=== PATIENT | male | born 1950 | race Caucasian/White ===

== ENCOUNTER → 2017-07-26 | Outpatient (CLI) | payer OTHER ==
--- NOTE | 2017-07-26 12:25 | P.CNPUL ---
History of Present Illness Consult date: 07/26/17 Reason for consult: obstructive sleep apnea History of present illness: A 67-year-old male patient who was asked to come and see me back at the sleep Center regarding his obstructive sleep apnea. This patient was diagnosed having obstructive sleep apnea more than 20 years ago and his been utilizing CPAP therapy at a pressure of 16 cm of water. His last CPAP machine was given to him approximately 3 years ago and is using nasal pillows. He is coming in to the sleep center upon the request of his neurologist to make sure his treatment is still successful. The patient tells her today that he is been utilizing his CPAP machine overnight without any interruption. He does not snore while on the CPAP machine. No witnessed apneas while on treatment. He goes to bed at around 8 PM and he wakes up to 20 a.m. in the morning. He has to wake up early to go to work. He lives in [place] and he works in [employer]. He got of 45 minutes [place] [address] back and forth and he does not fall asleep while driving. He does not take any naps during the day. He wakes up refreshed in the morning. He has no restlessness in lower extremities. No nightmares. No sleepwalking. No sleep talking. No palpitations. No heartburn. No claustrophobia. His weight has been also stable. As such his treatment has been essentially successful. He under the care of neurology regarding chronic restless mass and essential tremors. Review of Systems A full review of system was done and the positive findings are almost above in history of present illness. He has some mild chronic depression. He has not been involved in motor vehicle accident because of feeling drowsy or sleepy. Does not fall asleep while driving. No chest pain. No nocturnal heartburn. No body aches or pains. No back pain. No other complaints otherwise. Past Medical History Additional Past Medical History / Comment(s): Obstructive sleep apnea, morbid obesity, essential tremors, diabetes mellitus, hyperlipidemia Additional Past Surgical History / Comment(s): Right hand surgery, otherwise the surgical history is negative Smoking Status: Former smoker Past Alcohol Use History: None Reported Past Drug Use History: None Reported - Past Family History Father Family Medical History: Sleep Apnea/CPAP/BIPAP Medications and Allergies Home Medications and Allergies Comment(s): Etodolac 400 mg twice a day as needed, metformin 500 mg once a day, bupropion XL 300 mg by mouth daily, Lipitor 40 mg by mouth daily, lisinopril 10 mg by mouth daily, Sinemet 25/100 on tablets 3 times a day, lorazepam 0.5 mg twice a day Physical Exam Vitals: BP is 129/85, pulse is 73, respirations 14, temperature 97.2, saturation 97% on room air, exercise is 22-1/2 inches, weight is 354 pounds, height is 69 inches, BMI is 52.2, [place] score is 5. Morbidly obese, calm and comfortable likely distress.Head exam was generally normal. There was no scleral icterus or corneal arcus. Mucous membranes were moist. Neck is short and supple and there is significant crowding of the posterior oropharynx and the patient has a Mallampati class IV. No goiter. No neck masses. No adenopathy.Cardiac exam revealed the PMI to be normally situated and sized. The rhythm was regular and no extrasystoles were noted during several minutes of auscultation. The first and second heart sounds were normal and physiologic splitting of the second heart sound was noted. There were no murmurs, rubs, clicks, or gallops.Lungs were clear to auscultation and percussion, and with normal diaphragmatic excursion. No wheezes or rales were noted. Abdominal exam revealed normal bowel sounds. The abdomen was soft, non- tender, and without masses, organomegaly, or appreciable enlargement of the abdominal aorta. Patient is obese and organs cannot be accurately palpated.Examination of the extremities revealed easily palpable radial, femoral and pedal pulses. There was no cyanosis, clubbing or edema. Assessment and Plan Plan: Assessment 1 obstructive sleep apnea diagnosed and treated for the past 20 years and the patient is currently receiving successful CPAP therapy at a pressure of 16 cm of water. His treatment is successful and the patient denies having any snoring , apneas or any major hypersomnia and sleepiness during the day. 2 obesity, BMI 52.2 3 essential tremors 4 diabetes 5 hyperlipidemia Plan There is no need in repeating staging studies at this point. The patient has been successfully treated. Anterior same pressure setting and a CPAP machine. He is using nasal pillows which he wants to keep. Recommend losing weight. His treatment is successful. He follows a very good sleep hygiene measure. He' ll see her back in a years time, earlier if needed. As mentioned, there is no need to repeating his sleep studies at this point. I requested the patient bring in his CPAP machine during his upcoming visit to check on his compliance data.
== END ==
LOC: SLEEP 11:06
PROVIDERS: ATTEND Internal Medicine Critical Care Medicine
DX: G47.33 Obstructive sleep apnea (adult) (pediatric) (principal); E66.9 Obesity, unspecified; R25.1 Tremor, unspecified; E11.9 Type 2 diabetes mellitus without complications; E78.5 Hyperlipidemia, unspecified; F17.200 Nicotine dependence, unspecified, uncomplicated; Z79.899 Other long term (current) drug therapy
CPT/HCPCS: 99211

== ENCOUNTER → 2019-04-03 | Outpatient (CLI) | payer OTHER ==
--- NOTE | 2019-04-03 16:17 | CT ---
EXAMINATION TYPE: CT sinus wo con DATE OF EXAM: 04/03/2019 COMPARISON: None HISTORY: 69-year-old male with chronic sinusitis. CT DLP: 600 mGycm Automated exposure control for dose reduction was used. TECHNIQUE: Noncontrast axial views of the paranasal sinuses were obtained. Coronal reconstructions pe rformed. FINDINGS: PARANASAL SINUSES: Mild mucosal thickening within the bilateral maxillary sinuses with small polyps or mucous retention cysts along the floors of the maxillary sinuses measuring up to 1 cm. Mild/moderate mucosal thickening within the ethmoid air cells. Sphenoid and frontal sinuses are well pneumatized. frontal, ethmoid, maxillary and sphenoid sinuses are clear and well pneumatized. There is no mucosal thickening or air-fluid level. Reactive vahid- osteogenesis is not seen. There is no destruction of the osseous delgadillo of the paranasal sinuses. THE NASAL CAVITY: The osteomeatal complexes are patent. There is minimal undulation of the nasal septum. The imaged brain shows moderate generalized atrophy. Orbits and globes appear intact. Mastoid air cells and middle ear cavities are well pneumatized. Reformatted images confirm above findings. IMPRESSION: Mild to moderate chronic maxillary and ethmoid sinus disease. There are small polyps or mucosal reten tion cyst measuring up to 1 cm along the floors of the maxillary sinuses.
== END | disposition home or self-care (01) ==
LOC: RADCTMAIN 15:51
PROVIDERS: ATTEND Otolaryngology
DX: J32.8 Other chronic sinusitis (principal)
CPT/HCPCS: 70486

== ENCOUNTER → 2019-04-25 | Outpatient (CLI) | payer OTHER | END | disposition home or self-care (01) | LOC: LABWHC1 13:05 | PROVIDERS: ATTEND Otolaryngology | DX: R53.83 Other fatigue (principal) | CPT/HCPCS: 36415; 82306; 82330 ==

== ENCOUNTER → 2019-12-19 | Outpatient (CLI) | payer OTHER | END | disposition home or self-care (01) | LOC: RADMRIMAIN 16:57 | PROVIDERS: ATTEND Otolaryngology | DX: Z53.9 Procedure and treatment not carried out, unspecified reason (principal) ==

== ENCOUNTER 2020-06-16 18:10 | Emergency (ER) | payer OTHER ==
[2020-06-16] MEDS ORDERED: ORPHENADRINE 30 MG/ML 2 ML VIAL IVP STA (18:28)
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
[2020-06-16] MEDS ORDERED: ONDANSETRON 4 MG/2 ML VIAL IVP STA (19:12)
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
[2020-06-16] MEDS ORDERED: KETOROLAC 30 MG/ML 1 ML VIAL IVP STA (19:24)
[2020-06-16 19:25] VITALS: BP 174/99; PULSE 82; RESP 20; TEMP 97.8
[2020-06-16] MEDS ORDERED: CYCLOBENZAPRINE 10MG STARTER 3 TAB BTL PO STA (19:31)
[2020-06-16] MEDS ORDERED: ACET/COD 300 MG/30 MG STARTER PACK 6 TAB BTL PO STA (19:31)
== END 2020-06-16 20:20 | disposition home or self-care (01) ==
LOC: EC 18:10
DX: S16.1XXA Strain of muscle, fascia and tendon at neck level, initial encounter (principal); E11.9 Type 2 diabetes mellitus without complications; E78.5 Hyperlipidemia, unspecified; I10 Essential (primary) hypertension; E66.01 Morbid (severe) obesity due to excess calories; Z68.43 Body mass index [BMI] 50.0-59.9, adult; V59.49XA Driver of pick-up truck or van injured in collision with other motor vehicles in traffic accident, initial encounter; Y92.481 Parking lot as the place of occurrence of the external cause
CPT/HCPCS: 72125; 70450; 99285; 96374; 96375 ×2; J2360; J2405; J1885

== ENCOUNTER → 2022-06-01 | Outpatient (CLI) | payer MEDICARE ==
--- NOTE | 2022-06-01 16:45 | P.SLEEP ---
History of Present Illness H&P Date: 06/01/22 This is a 72-year-old male patient who is coming in for routine check regarding his obstructive sleep apnea. His last evaluation with me was in 2017. At that time, the patient was using a ResMed S9 CPAP machine which was adjusted at a pressure of 16 cm of water. I did a compliance to check on him at that time and the patient was being successfully treated. He was using the same machine over the years and recently his machine has been active and up and malfunctioning. For that reason, the patient decided to come back for reevaluation. The patient is known to have obstructive sleep apnea. He is morbidly obese. He is known to have diabetes mellitus, and hyperlipidemia. No history of any cardiovascular diseases. He is morbidly obese. O2 sats, over the years, the patient has gained significant amount of weight. Back in 2017, used to weigh around 354 pounds and currently his weight is up to 382. He snores off the treatment. He becomes quite symptomatic while off the treatment. Once on the treatment, he is well treated and the patient's [place] score is as low as 3. No angina. No palpitations. He is going to bed at around 11 PM and waking up 9:00 in the morning. He is averaging at least 8 hours of sleep. No snoring while on the CPAP unit. He wakes up at least 3-4 times the middle of the night to urinate. No sleepwalking. No sleep talking. No grinding of the teeth. Denies waking up choking or gasping for air. No anxiety. No panic. No heartburn. No shortness of breath. Review of Systems Constitutional: Reports daytime sleepiness, Reports fatigue, Reports weight gain Eyes: denies as per HPI, denies blurred vision, denies bulging eye, denies decreased vision, denies diplopia, denies discharge, denies dry eye, denies irritation, denies itching, denies pain, denies photophobia, denies loss of peripheral vision, denies loss of vision, denies tunnel vision/blind spots Ears: deny: decreased hearing, ear discharge, earache, tinnitus Ears, nose, mouth and throat: Reports as per HPI Breasts: absent: as per HPI, gynecomastia Cardiovascular: Reports as per HPI Respiratory: Reports sleep apnea, Reports snoring Gastrointestinal: Reports as per HPI Genitourinary: Reports as per HPI Musculoskeletal: Reports as per HPI Musculoskeletal: absent: ankle pain, ankle stiffness, ankle swelling Neurological: Reports as per HPI Psychiatric: Reports as per HPI Endocrine: Reports as per HPI Hematologic/Lymphatic: Reports as per HPI Allergic/Immunologic: Reports as per HPI Past Medical History Past Medical History: Diabetes Mellitus, Hyperlipidemia, Hypertension Additional Past Medical History / Comment(s): Obstructive sleep apnea, morbid obesity, essential tremors, diabetes mellitus, hyperlipidemia History of Any Multi-Drug Resistant Organisms: None Reported Additional Past Surgical History / Comment(s): Right hand surgery, otherwise the surgical history is negative Past Psychological History: Depression Smoking Status: Never smoker Past Alcohol Use History: None Reported Past Drug Use History: None Reported - Past Family History Father Family Medical History: Sleep Apnea/CPAP/BIPAP Medications and Allergies Home Medications Medication Instructions Recorded Confirmed Type Cyclobenzaprine HCl 10 mg PO TID #12 tab 06/16/20 Rx Cyclobenzaprine [Flexeril] 10 mg PO TID #12 tab 06/16/20 Rx Allergies Allergy/AdvReac Type Severity Reaction Status Date / Time No Known Allergies Allergy Verified 06/16/20 18:33 Physical Exam Vitals: P is 131/79, pulse is 58, respirations 20, body mass index is at 57, epworth score is at 3. The patient has a weight of 382 pounds. Pulse ox is 95% on room air oxygen. upper score is at 3, body mass index Morbidly obese, calm and comfortable likely distress.Head exam was generally normal. There was no scleral icterus or corneal arcus. Mucous membranes were moist. Neck is short and supple and there is significant crowding of the posterior oropharynx and the patient has a Mallampati class IV. No goiter. No neck masses. No adenopathy.Cardiac exam revealed the PMI to be normally situated and sized. The rhythm was regular and no extrasystoles were noted during several minutes of auscultation. The first and second heart sounds were normal and physiologic splitting of the second heart sound was noted. There were no murmurs, rubs, clicks, or gallops.Lungs were clear to auscultation and percussion, and with normal diaphragmatic excursion. No wheezes or rales were noted. Abdominal exam revealed normal bowel sounds. The abdomen was soft, non- tender, and without masses, organomegaly, or appreciable enlargement of the abdominal aorta. Patient is obese and organs cannot be accurately palpa julian.Examination of the extremities revealed easily palpable radial, femoral and pedal pulses. There was no cyanosis, clubbing or edema. Assessment and Plan Plan: 1 obstructive sleep apnea diagnosed and treated for the past 20 years and the patient is currently receiving successful CPAP therapy at a pressure of 16 cm of water. His treatment is successful and the patient denies having any snoring, apneas or any major hypersomnia and sleepiness during the day. Nevertheless, for now, the patient's machine is not functioning properly. The patient needs to update his machine. He has gained approximately 25 pounds since 2017. 2 obesity 3 essential tremors 4 diabetes 5 hyperlipidemia Plan Proceed with a home sleep study to re established diagnosis and severity of sleep apnea Based on those results, we'll going to order the patient a CPAP unit, preferably and APAP unit which was at a pressure of 16 cm of water. I tried this patient on a air touch nasal mask which she was able to tolerate nicely. I'm going to switch him from Brevida to air touch nasal mask Encourage weight loss Back in 30-90 days after obtaining his new machine for another compliancy check. His current machine is malfunctioning and needs to be replaced. Sleep hygiene measures are good No other comorbidities affecting sleep Sleep Note - Sleep Note Sleep Note: Temperature: Pulse Rate: Respiratory Rate: Blood Pressure: SpO2: Height: Weight: BMI: Neck Circumference:
== END ==
LOC: SLEEP 16:00
PROVIDERS: ATTEND Internal Medicine Critical Care Medicine
DX: G47.33 Obstructive sleep apnea (adult) (pediatric) (principal); E11.9 Type 2 diabetes mellitus without complications; E78.5 Hyperlipidemia, unspecified; G25.0 Essential tremor; F32.A Depression, unspecified; I10 Essential (primary) hypertension; E66.01 Morbid (severe) obesity due to excess calories; Z68.43 Body mass index [BMI] 50.0-59.9, adult; Z99.89 Dependence on other enabling machines and devices; Z87.891 Personal history of nicotine dependence
CPT/HCPCS: 99211

== ENCOUNTER → 2022-09-14 | Outpatient (CLI) | payer MEDICARE ==
--- NOTE | 2022-09-15 17:08 | PN ---
PROGRESS NOTE SUBJECTIVE: This is a 72-year-old male patient, coming in for a compliance check regarding his new CPAP machine. The patient is known to have obstructive sleep apnea, and the patient has had obstructive sleep apnea for many years. He was utilizing an older generation of ResMed S9 series. The patient underwent a re-evaluation, and a home study was done to reestablish diagnosis, and the patient was again confirmed to have severe PAUL with an AHI of 57. Based on that, I gave the patient a new generation ResMed 11 CPAP unit and the patient is coming in for a compliancy check. On today's evaluation, the patient reports marked improvement in sleep quality. He is very compliant. Based on the data that was collected between 08/15/2022 and 09/13/2022, the patient utilized the machine on average 9 hours and 20 minutes. The patient has utilized his machine every night without any interruption, and he has used the machine for more than 4 hours is 100%. His current pressures are minimum of 10 and maximum of 20 cm of water in APAP mode. Based on the compliance data, the patient's AHI is down to 2.3. The leak is in order of 38 L/minute and P90 percentile pressure is 16.5 cm of water. He is using the Brevida M-L nasal mask. No other new complaints otherwise for now. He is utilizing his machine. OBJECTIVE: VITAL SIGNS: BP is 152/83, pulse is 81, respirations 22, and [place] score is at 5, saturation 96% on room air, weight is 377. GENERAL APPEARANCE: Morbidly obese, calm, comfortable. HEAD: Atraumatic, normocephalic. NECK: Supple. There is no JVD. No goiter or neck masses. Mallampati class 4. LUNGS: Diminished breath sounds, otherwise clear. HEART: Sounds are regular rate and rhythm. Normal S1, S2. No S3, S4. No murmurs. ABDOMEN: Soft, obese, nontender. Organs cannot be accurately palpated. EXTREMITIES: Trace edema. There is no cyanosis or clubbing. IMPRESSION: 1. Severe obstructive sleep apnea with an AHI of 57, undergoing successful APAP treatment, pressures minimum of 10 and maximum of 20, and compliance data was checked. 2. Morbid obesity with a BMI of 57. 3. Chronic hypersomnia. 4. Diabetes mellitus. 5. Hyperlipidemia. PLAN: 1. Continue utilizing ResMed AutoSet 11 at the same level of pressures, minimum of 10 and maximum of 20 with a C-Flex of 3. 2. Continue Brevida M-L nasal mask. 3. Encourage weight loss. 4. Compliance data was checked. No need for any further adjustments. See me back in 1 year's time in followup. MMODL / IJN: [id number] /
== END ==
LOC: SLEEP 15:20
PROVIDERS: ATTEND Internal Medicine Critical Care Medicine
DX: Z53.9 Procedure and treatment not carried out, unspecified reason (principal)

== ENCOUNTER → 2023-10-28 | Outpatient (CLI) | payer MEDICARE, BC ==
[2023-10-28 16:16] LABS: INR 0.9 (<1.2); Partial Thromboplastin Time 25.3 sec (22.0-30.0); Prothrombin Time 10.2 sec (10.0-12.5)
[2023-10-29 02:57] LABS: ALT 26 U/L (10-49); AST 15 U/L (14-35); Albumin 4.4 g/dL (3.8-4.9); Albumin/Globulin Ratio 1.57 Ratio (1.60-3.17); Alkaline Phosphatase 56 U/L (41-126); BUN/Creat Ratio 20.92 Ratio (12.00-20.00); Blood Urea Nitrogen 27.2 mg/dL (9.0-27.0); Calcium 10.3 mg/dL (8.7-10.3); Carbon Dioxide 25.1 mmol/L (21.6-31.8); Chloride 99 mmol/L (96-109); Globulin 2.8 g/dL (1.6-3.3); Glucose 92 mg/dL (70-110); Potassium 4.6 mmol/L (3.5-5.5); Sodium 137 mmol/L (135-145); Total Bilirubin 0.4 mg/dL (0.3-1.2); Total Protein 7.2 g/dL (6.2-8.2)
[2023-10-29 03:13] LABS: Basophils # (A) 0.04 X 10*3/uL (0.00-0.10); Basophils % (A) 0.4 %; Eosinophils # (A) 0.14 X 10*3/uL (0.04-0.35); Eosinophils % (A) 1.5 %; HCT 47.8 % (39.6-50.0); HGB 15.4 g/dL (13.0-17.0); Lymphocytes # (A) 2.13 X 10*3/uL (0.90-5.00); Lymphocytes % (A) 22.5 %; MCHC 32.2 g/dL (32.0-37.0); MCV 96.2 FL (80.0-97.0); Mean Platelet Volume 9.8 FL (9.5-12.2); Monocytes # (A) 0.62 X 10*3/uL (0.20-1.00); Monocytes % (A) 6.6 %; NRBC Per 100 WBC 0 X 10*3/uL (0.00-0.01); Neutrophils # (A) 6.51 X 10*3/uL (1.80-7.70); Neutrophils % (A) 68.8 %; Platelet Count 374 X 10*3/uL (140-440); RBC 4.97 X 10*6/uL (4.40-5.60); RDW 14.4 % (11.5-14.5); WBC 9.46 X 10*3/uL (4.50-10.00)
[2023-10-29 04:12] LABS: Appearance,Urine Clear (Clear); Bilirubin,Urine Negative (Negative); Blood,Urine Negative (Negative); Color,Urine Yellow (Yellow); Ketones,Urine Negative (Negative); Nitrite,Urine Negative (Negative); Specific Gravity,Urine 1.017 (1.001-1.030)
== END | disposition home or self-care (01) ==
LOC: LABPAT 13:37
PROVIDERS: ATTEND Orthopaedic Surgery
DX: Z01.812 Encounter for preprocedural laboratory examination (principal); M17.12 Unilateral primary osteoarthritis, left knee
CPT/HCPCS: 80053; 81003; 85025; 85610; 85730; 87070; 93005

== ENCOUNTER 2023-11-07 07:19 | Day surgery (SDC) | payer MEDICARE, BC ==
[~2023-11-07 07:19] MED LIST: ACETAMINOPHEN TAB 500 MG TAB PO PRN; GABAPENTIN 300 MG CAP PO PRN; MELOXICAM 7.5 MG TAB PO PRN; TRANEXAMIC 1,000 MG/100ML-NACL 1,000 MG in SALINE 1 100ML.BAG IVPB PRN; ceFAZolin 3 GM in SODIUM CHLORIDE 0.9% 100 ML IVPB PRN
[2023-11-07] MEDS ORDERED: MIDAZOLAM 2 MG/2 ML VIAL IV PRN (07:41)
[2023-11-07] MEDS ORDERED: ONDANSETRON 4 MG/2 ML VIAL IVP ONE ×2 (07:41→08:29)
[2023-11-07] MEDS ORDERED: DEXAMETHASONE SOD PHOSPHATE 4 MG/ML 1 ML VIAL IV ONE (07:41)
[2023-11-07] MEDS ORDERED: LIDOCAINE 1% (10MG/ML) FOR IV START INTRADERMA PRN (07:41)
[2023-11-07] MEDS ORDERED: fentaNYL (PF) 50 MCG/ML 2 ML AMP IV PRN (07:41)
[2023-11-07] MEDS: LACTATED RINGERS 1,000 ML IV SCH (07:45)
[2023-11-07 08:27] LABS: Glucose,Whole Blood 140 mg/dL (70-110)
[2023-11-07] MEDS ORDERED: DEXAMETHASONE SOD PHOSPHATE 4 MG/ML 1 ML VIAL IVP ONE (08:29)
[2023-11-07] MEDS ORDERED: MIDAZOLAM 2 MG/2 ML VIAL IVP ONE (08:36)
[2023-11-07] MEDS ORDERED: fentaNYL (PF) 50 MCG/ML 2 ML AMP IVP ONE ×2 (08:36)
[2023-11-07] MEDS ORDERED: NALOXONE 0.4 MG/ML 1 ML VIAL IV PRN (09:57)
[2023-11-07] MEDS ORDERED: MAGNESIUM HYDROXIDE 2,400 MG/30 ML CUP PO PRN (09:57)
[2023-11-07] MEDS ORDERED: NA PHOS,M-B/NA PHOS,DI-BA 133 ML ENEMA RECTAL PRN (09:57)
[2023-11-07] MEDS ORDERED: HYDROmorphone 0.5 MG/0.5 ML SYRINGE IVP PRN ×3 (09:57)
[2023-11-07] MEDS ORDERED: bisacodyL 10 MG SUPP RECTAL PRN (09:57)
[2023-11-07] MEDS ORDERED: ONDANSETRON 4 MG/2 ML VIAL IVP PRN (09:57)
[2023-11-07] MEDS ORDERED: HYDROcodone/APAP 7.5-325MG 1 EACH TAB PO PRN (09:59)
[2023-11-07] MEDS ORDERED: fentaNYL (PF) 50 MCG/ML 2 ML AMP ONE (10:05)
[2023-11-07] MEDS ORDERED: ceFAZolin 1,000 MG in SODIUM CHLORIDE 0.9% 1,000 ML IRRIGATION ONE (10:05)
[2023-11-07] MEDS ORDERED: PROPOFOL 10 MG/ML 20 ML VIAL IV ONE (10:05)
[2023-11-07] MEDS ORDERED: HYDROmorphone (PF) 1 MG/ML ONE (10:05)
[2023-11-07] MEDS ORDERED: GLYCOPYRROLATE 0.2 MG/ML 2 ML VIAL ONE (10:05)
[2023-11-07] MEDS ORDERED: LIDOCAINE 1% INJ 10MG/ML (20 ML MDV) ONE (10:05)
[2023-11-07] MEDS ORDERED: TRANEXAMIC 1,000 MG/100ML-NACL PREMIX BAG ONE (10:05)
[2023-11-07] MEDS ORDERED: KETAMINE HCL IN 0.9 % NACL 50 MG/5 ML SYRINGE ONE (10:05)
[2023-11-07] MEDS ORDERED: SUCCINYLCHOLINE CHLORIDE 200 MG/10 ML VIAL IV ONE (10:05)
[2023-11-07] MEDS ORDERED: MIDAZOLAM 2 MG/2 ML VIAL ONE (10:05)
[2023-11-07] MEDS ORDERED: NEOSTIGMINE 1 MG/ML 10 ML VIAL ONE (10:05)
[2023-11-07] MEDS ORDERED: ROPIVACAINE 5 MG/ML 30 ML VIAL ONE (10:05)
[2023-11-07] MEDS ORDERED: ROCURONIUM 10 MG/ML (5 ML VIAL) IV ONE (10:05)
--- NOTE | 2023-11-07 11:11 | P.ANPRN ---
Procedure Note - Anesthesia - Nerve Block Performed Left Adductor Canal Infusion Time Out Performed: Yes (0836) Date of Procedure: 11/07/23 Procedure Start Time: 08:37 Procedure Stop Time: 08:43 Location of Patient: PreOp Indication: Acute Post-Operative Pain, Requested by Surgeon Specifically requested for management of pain by DrLindsey: Blaise Chacon Sedation Type: Sedate with meaningful contact maintained Preparation: Sterile Prep, Sterile Dressing Position: Supine Catheter Depth at Skin (cm): 7 Catheter: Indwelling Needle Types: Pajunk Needle Gauge: 18 Ultrasound used to visualize needle placement: Yes Ultrasound used to observe medication spread: Yes Injectate: 0.5% Ropivacaine (see comment for volume) (20ccc) Blood Aspirated: No Pain Paresthesia on Injection Noted: No Resistance on Injection: Normal Image Stored and Saved: Yes Events: Uneventful and Well Tolerated
--- NOTE | 2023-11-07 11:12 | P.ANPRN ---
Procedure Note - Anesthesia - Nerve Block Performed Left iPack Single Time Out Performed: Yes (0836) Date of Procedure: 11/07/23 Procedure Start Time: 08:44 Procedure Stop Time: 08:47 Location of Patient: PreOp Indication: Acute Post-Operative Pain, Requested by Surgeon Specifically requested for management of pain by DrLindsey: Blaise Chacon Sedation Type: Sedate with meaningful contact maintained Preparation: Sterile Prep Position: Supine Catheter: None Needle Types: Pajunk Needle Gauge: 21 Ultrasound used to visualize needle placement: Yes Ultrasound used to observe medication spread: Yes Injectate: 0.5% Ropivacaine (see comment for volume) (20cc) Blood Aspirated: No Pain Paresthesia on Injection Noted: No Resistance on Injection: Normal Image Stored and Saved: Yes Events: Uneventful and Well Tolerated
--- NOTE | 2023-11-07 11:23 | P.OP ---
Date of Procedure: 11/07/23 Preoperative Diagnosis: Severe osteoarthritis left knee Postoperative Diagnosis: Severe osteoarthritis left knee Procedure(s) Performed: Left Total knee arthroplasty Implants: Sanchez [employer] Nephew Journey II CR Oxinium cruciate retaining femoral component size 7, left [employer] Journey nonporous tibial baseplate size 7, left [employer] Journey II, XLPE Deep Dished articular insert, size 9 mm, Size 7- 8, left [employer] Journey Yoana II resurfacing patellar component, oval, 35 mm All components were cemented using Palacos R bone cement The articulation is Oxinium on polyethylene Anesthesia: NARGIS Surgeon: Blaise Chacon Financial Services Specialist #1: Ronit Toney Estimated Blood Loss (ml): 50 Pathology: none sent Condition: stable Disposition: PACU Indications for Procedure: The patient's knee is end-stage, and conservative management has failed. The operation of knee replacement has been discussed at length in the office, as well as potential risks and complications. These are inclusive of, but not limited to: Infection, bleeding, scarring, discomfort, stiffness, blood vessel and nerve damage, need for further surgery, failure to relieve symptoms, persistence, recurrence, or worsening of problems, loosening, dislocation, wear, blood clot, pulmonary embolism, , gait dysfunction, stiffness, and other risks as discussed in the office. Patient elects to proceed and the consent form has been signed. Operative Findings: The operative findings are consistent with severe osteoarthritis the left knee Description of Procedure: The patient was seen in the preoperative area, the consent was reviewed and the operative site was marked with a skin marker. The patient verified the procedure and the operative site. An adductor canal pain catheter and an iPACK block were placed by anesthesia in the preoperative area. The patient was then brought to the operating room and positioned on the operating room table in the supine position. Preoperative antibiotics and a gram of tranexamic acid were given intravenously. A general anesthetic was administered by the anesthesia department. Care was taken to make sure that all pressure points were adequately padded. A tourniquet was placed on the upper thigh and the lower extremity was prepped with ChloraPrep and draped in usual sterile fashion. A universal time-out was then performed which confirmed the patient's name, surgical site, ALLERGIES, and consent. The lower extremity was then exsanguinated and tourniquet was inflated to 250 mmHg. A standard anterior midline approach to the knee was performed. The skin and subcutaneous tissue were sharply dissected down to the patellar tendon. A medial parapatellar arthrotomy was then performed. The knee was then extended, the patellar was everted, and the knee was flexed. The infra-patellar fat pad was removed in order to enhance exposure. The anterior horns of both menisci were excised, and a release was performed to the posterior medial aspect of the knee. On gross visual inspection, there was complete loss of articular cartilage in the medial and patellofemoral joint spaces. There was also significant cartilage damage in the lateral compartment. There were multiple periarticular osteophytes globally about the knee which were then removed with a Ronguer. The femoral canal was then opened with the 9.5 mm intramedullary drill. The 8 mm intramedullary servando was then inserted into the femoral canal with the distal femoral cutting guide set for 5 of valgus. The distal femoral cutting block was then pinned in place. The intramedullary servando was then removed, and the distal femur was then cut. The cutting block was then removed and the cut was checked for symmetry. The resected bone was then measured to confirm the appropriate distal femoral resection. Next, the sizing guide was then placed and set for 3 external rotation based off of the epicondylar axis and Gabriella's line. Pins were then placed and the drill holes, and the femur was sized with the sizing stylus. The pins were then removed, and the sizing guide was then removed. The spikes of the appropriate size femoral block was then placed into the predrilled holes, and malleted into place. Two 45 mm pins were then placed into the fixation holes on the cutting block. An eliz wing was then used to ensure there would be no notching with the anterior cut. The anterior condyles were cut without notching. The anterior chord cut was then performed, followed by the posterior cut, posterior chamfer cut, and the anterior chamfer cut. The collateral ligaments were protected during the entire process. The cutting block was then removed. Any remaining bone and osteophytes were removed from the femur with a Ronguer. Attention was then directed to the tibia. The remaining ACL was removed with a Ronguer, and the tibia was then gently subluxed forward with a large bent knee retractor. Any remaining menisci were excised. The posterior lateral corner was cauterized in order to coagulate the lateral geniculate artery. The extra medullary tibial cutting guide was then placed, set for the appropriate rotation, slope, and depth of resection. The proximal tibia cutting guide was then pinned in place. Proximal tibia was then cut and sized. A curved osteotome was then used to remove any posterior osteophytes from the distal femur. The femoral trial was placed. A narrow saw blade was then used to remove the anterior intracondylar femoral bone. The CR notch trial was then placed. The tibial trial was placed with the appropriate-sized insert. The knee was able to fully extend and flex to 130 and was stable throughout all range of motion. The knee was then extended and the patella was everted. Patella was then measured, and then using an osteotomy guide, the patella was cut at the appropriate level. The patellar component was sized. The patellar drill guide was placed and the patella was drilled. The patella trial was then placed. The knee was then taken through range of motion with the patella trial and the patella tracked normally using the no thumbs technique. The patella trial was then removed. The knee was then flexed and lug holes were drilled through the femoral trial and the femoral trial was then removed. The tibial was then re- exposed, and the tibial broach guide was then pinned in place after it was set for the appropriate rotation to allow for the most coverage without overhang. The tibia was then reamed and broached. The femoral canal was plugged with autologous bone. The cut surfaces of bone were then irrigated with pulsatile lavage. The knee was also irrigated with Irrisept solution. The components were then opened, the cement was mixed. Cement was placed on the backside of the femoral, tibial, and patellar components. Cement was then applied to the tibial surface and pressurized into the surface using finger pressurization technique. The tibial component was then applied and excess cement was removed after it was impacted securely noted to be flush with the cut surface. In similar fashion, the cement was applied to the cut femoral surface, pressurized and using finger pressurization the component was impacted in place. Excess cement was removed. The polyethylene spacer was then implanted and locked into position. Patellar component was then applied in a similar technique and the patellar clamp was used to hold patella in place while the cement hardened. The knee was held in full extension while the cement hardened. Once the cement had fully hardened, the knee was reinspected. Any other cement extrusion was removed the final range of motion testing showed range of motion from 0-130 with excellent stability, both medial and laterally and appropriate alignment of the leg. Patella tracked normally. After the cemented hardened, the tourniquet was released and hemostasis was obtained. A second gram of transexamic acid was given intravenously. The knee was again irrigated. The knee was again taken through range of motion and found to be stable throughout all range of motion of 0-130, and the patella tracked normally. The fascia was then closed with 0 Vicryl followed by #2 strata fix suture. The subcutaneous tissue was closed with 3-0 Vicryl and 3-0 strata fix. Exofin glue was used for the skin and placed with the knee in flexion. After the glue had dried, and Optafoam silver impregnated dressing was applied. A lightly compressive dressing was applied using web roll and Renny wrap. Patient was then transferred to the stretcher and taken to recovery room in stable condition. Sponge and needle counts were correct. The property assistant ELVIA Jean Baptiste was required due the complexity surgery and the need for a skilled operating room surgical technologist. She assisted in positioning, draping, retraction, and closure of the wound.
[2023-11-07] MEDS: HYDROmorphone 0.5 MG/0.5 ML SYRINGE IVP PRN ×2 (12:24→12:54)
[2023-11-07] MEDS ORDERED: ROPIVACAINE 1,100 MG, SODIUM CHLORIDE 0.9% 500 ML 330 ML, EMPTY PAIN BALL 1 EACH MISCELLANE PRN ×2 (13:01)
--- NOTE | 2023-11-07 13:56 | XR ---
EXAMINATION TYPE: XR knee limited LT DATE OF EXAM: 11/07/2023 COMPARISON: None HISTORY: Knee replacement TECHNIQUE: 2 view left knee FINDINGS: Tibial and femoral components of the place. No acute fractures are evident. Soft tissue pos tsurgical changes are noted. IMPRESSION: 1. No acute fractures post knee replacement
[2023-11-07 15:10] LABS: Glucose,Whole Blood 220 mg/dL (70-110)
[2023-11-07] MEDS ORDERED: INSULIN ASPART (NovoLOG) 100 UNIT/ML VIAL SQ ONE (15:14)
[2023-11-07 16:30] LABS: Glucose,Whole Blood 216 mg/dL (70-110)
--- NOTE | 2023-11-07 17:01 | P.CONS ---
History of Present Illness - Reason for Consult Low-grade fever - History of Present Illness 73-year-old pleasant gentleman admitted for elective left knee arthroplasty underwent surgery. Postoperatively patient is bit tachycardic usually takes metoprolol sustained release at home. Patient does have history of hypertension patient has an episode of low-grade fever 100.0 F. Patient clinically denied any cough with sputum, denied any case symptoms. Patient does have sleep apnea is obese, he uses CPAP machine at home at nighttime. Pain is well-controlled denied any complaints at this time REVIEW OF SYSTEMS: CONSTITUTIONAL: No fever, no malaise, no fatigue. HEENT: No recent visual problems or hearing problems. Denied any sore throat. CARDIOVASCULAR: No chest pain, orthopnea, PND, no palpitations, no syncope. PULMONARY: No shortness of breath, no cough, no hemoptysis. GASTROINTESTINAL: No diarrhea, no nausea, no vomiting, no abdominal pain. NEUROLOGICAL: No headaches, no weakness, no numbness. HEMATOLOGICAL: Denies any bleeding or petechiae. GENITOURINARY: Denies any burning micturition, frequency, or urgency. MUSCULOSKELETAL/RHEUMATOLOGICAL: Denies any joint pain, swelling, or any muscle pain. ENDOCRINE: Denies any polyuria or polydipsia. The rest of the 14-point review of systems is negative. PHYSICAL EXAMINATION: GENERAL: The patient is alert and oriented x3, not in any acute distress. Well developed, well nourished. HEENT: Pupils are round and equally reacting to light. EOMI. No scleral icterus. No conjunctival pallor. Normocephalic, atraumatic. No pharyngeal erythema. No thyromegaly. CARDIOVASCULAR: S1 and S2 present. No murmurs, rubs, or gallops. PULMONARY: Chest is clear to auscultation, no wheezing or crackles. ABDOMEN: Soft, nontender, nondistended, normoactive bowel sounds. No palpable organomegaly. MUSCULOSKELETAL: No joint swelling or deformity. EXTREMITIES: No cyanosis, clubbing, or pedal edema. Left knee postsurgically packed NEUROLOGICAL: Gross neurological examination did not reveal any focal deficits. SKIN: No rashes. Assessment and plan -Low-grade fever probably postoperative atelectasis, will monitor for any further fevers if he has fevers again up to the chest x-ray, UA, blood cultures along with viral panel. Instructed to use the incentive spirometry. Will obtain CBC tomorrow -Sinus tachycardia reflux tachycardia patient will be resumed on metoprolol. -Type 2 diabetes mellitus patient will be resumed on insulin hold off on oral agents, will order sliding scale next and-hyperlipidemia -Hypertension hold off hydrochlorothiazide rest of the medications will be continued -Morbid obesity and obstructive sleep apnea continue with CPAP machine DVT prophylaxis: Patient is in aspirin twice a day Past Medical History Past Medical History: Diabetes Mellitus, Hyperlipidemia, Hypertension, Osteoarthritis (OA), Sleep Apnea/CPAP/BIPAP Additional Past Medical History / Comment(s): Obstructive sleep apnea wears cpap, morbid obesity, neuropathy to feet, seasonal allergies. leaky bladder wears pad. nuclear stress test pre procedure. History of Any Multi-Drug Resistant Organisms: None Reported Past Surgical History: Orthopedic Surgery Additional Past Surgical History / Comment(s): Right hand surgery, otherwise the surgical history is negative, colonoscopy, total knee 11/07/2023 Past Anesthesia/Blood Transfusion Reactions: No Reported Reaction Past Psychological History: Depression Smoking Status: Never smoker Past Alcohol Use History: None Reported Past Drug Use History: None Reported - Past Family History Father Family Medical History: Sleep Apnea/CPAP/BIPAP Mother Family Medical History: Coronary Artery Disease (CAD) Additional Family Medical History / Comment(s): during bypass surgery Medications and Allergies Home Medications Medication Instructions Recorded Confirmed Type Aspirin 81 mg PO DAILY 11/02/23 11/02/23 History Atorvastatin [Lipitor] 40 mg PO Q48H 11/02/23 11/07/23 History Celecoxib [CeleBREX] 200 mg PO BID PRN 11/02/23 11/07/23 History Cholecalciferol [Vitamin D3 (25 4,000 unit PO DAILY 11/02/23 11/07/23 History Mcg = 1000 Iu)] Fexofenadine HCl [Mallory Allergy] 180 mg PO DAILY 11/02/23 11/07/23 History Insulin Glargine,Hum.rec.anlog 70 units SQ HS 11/02/23 11/07/23 History [Lantus Solostar Pen] Metoprolol Succinate (ER) [Toprol 100 mg PO DAILY 11/02/23 11/07/23 History Xl] Montelukast [Singulair] 10 mg PO DAILY 11/02/23 11/07/23 History Repaglinide [Prandin] 2 mg PO AC-TID 11/02/23 11/07/23 History Semaglutide [Ozempic] 1 mg SQ WE 11/02/23 11/07/23 History Unk Multi Vitamin 1 tab PO DAILY 11/02/23 11/07/23 History hydroCHLOROthiazide 25 mg PO DAILY 11/02/23 11/07/23 History [Hydrochlorothiazide] lisinopriL [Lisinopril] 40 mg PO HS 11/02/23 11/07/23 History metFORMIN HCL [Metformin HCl] 1,000 mg PO BID 11/02/23 11/07/23 History Aspirin 325 mg PO BID #60 tab 11/07/23 Rx HYDROcodone/APAP 7.5-325MG [[place] 1 - 2 tab PO Q6H PRN #32 tab 11/07/23 Rx 7.5-325] Sennosides [Senokot] 2 tab PO DAILY PRN #60 tablet 11/07/23 Rx Allergies Allergy/AdvReac Type Severity Reaction Status Date / Time Penicillins Allergy Rash/Hives Verified 11/07/23 07:43 Physical Exam Vitals: Vital Signs Temp Pulse Resp BP BP Pulse Ox 11/07/23 16:04 100.0 F H 114 H 18 121/68 94 L 11/07/23 15:52 97.7 F 99 16 135/82 93 L 11/07/23 14:40 80 16 152/67 97 11/07/23 14:10 77 16 156/78 96 11/07/23 13:30 78 16 167/83 97 11/07/23 13:15 72 15 165/86 100 11/07/23 13:00 75 14 149/79 100 11/07/23 12:45 69 14 145/67 100 11/07/23 12:30 72 16 162/71 99 11/07/23 12:15 77 16 151/78 99 11/07/23 12:00 75 16 145/67 99 11/07/23 11:54 98 F 91 16 190/90 94 L 11/07/23 09:01 71 16 117/62 97 11/07/23 07:50 97.7 F 75 18 130/76 96 Intake and Output 11/07/23 11/07/23 11/07/23 06:59 14:59 22:59 Intake Total 1101 450 Output Total 50 Balance 1051 450 Intake: IV 1101 450 Output: Estimated Blood Loss 50 Other: Weight 163.3 kg Results Labs: Abnormal Lab Results - Last 24 Hours (Table) 11/07/23 11/07/23 11/07/23 Range/Units 08:19 15:08 16:29 POC Glucose (mg/dL) 140 H 220 H 216 H (70-110) mg/dL
[2023-11-07] MEDS: INSULIN ASPART (NovoLOG) 100 UNIT/ML VIAL SQ SCH ×2 (17:32→21:18)
[2023-11-07] MEDS: HYDROcodone/APAP 7.5-325MG 1 EACH TAB PO PRN (17:35)
[2023-11-07] MEDS: SODIUM CHLORIDE 0.9% 1,000 ML IV SCH ×2 (17:39→23:01)
[2023-11-07] MEDS: METOPROLOL SUCCINATE (ER) 100 MG TAB.ER.24H PO SCH (17:53)
[2023-11-07 20:56] LABS: Glucose,Whole Blood 233 mg/dL (70-110)
[2023-11-07] MEDS ORDERED: INSULIN DETEMIR (LEVEMIR) 100 UNIT/ML SYR SQ SCH (21:00)
[2023-11-07] MEDS ORDERED: SENNOSIDES-DOCUSATE SODIUM 1 EACH TAB PO SCH (21:00)
[2023-11-07] MEDS ORDERED: ATORVASTATIN 40 MG TAB PO SCH (21:00)
[2023-11-07] MEDS: ASPIRIN 325 MG TAB PO SCH (21:18)
[2023-11-08 06:07] LABS: Glucose,Whole Blood 133 mg/dL (70-110)
[2023-11-08] MEDS: INSULIN ASPART (NovoLOG) 100 UNIT/ML VIAL SQ SCH ×2 (06:11→12:50)
[2023-11-08] MEDS: LACTATED RINGERS 1,000 ML IV SCH (07:43)
--- NOTE | 2023-11-08 08:16 | P.PN ---
Progress Note - Text Progress Note Date: 11/08/23 (548) Anesthesiology Postop day 1 status post total knee arthroplasty with adductor canal catheter. Patient doing well. VAS 0 out of 10. Gross strength intact in lower extremity. Afebrile. Denies alterations in sensorium. Catheter site intact. Heart regular rate Lungs nonlabored Abdomen nondistended Assessment: Postop day 1 status post total knee arthroplasty with adductor canal catheter Plan: 1.All questions answered. Maintain catheter 2 more days with patient removal at home. Instructions to be given at discharge. 2.This note was dictated using [employer] software. Please be advised there is a potential for misspellings or errors in obstetric assistant.
[2023-11-08 08:19] VITALS: BP 134/81; PULSE 81; RESP 17; TEMP 98.4
[2023-11-08 08:34] LABS: Basophils # (A) 0.03 X 10*3/uL (0.00-0.10); Basophils % (A) 0.3 %; Eosinophils # (A) 0.05 X 10*3/uL (0.04-0.35); Eosinophils % (A) 0.5 %; HCT 39.2 % (39.6-50.0); HGB 12.8 g/dL (13.0-17.0); Lymphocytes # (A) 2.05 X 10*3/uL (0.90-5.00); Lymphocytes % (A) 18.9 %; MCH 30.5 pg (27.0-32.0); MCHC 32.7 g/dL (32.0-37.0); MCV 93.3 FL (80.0-97.0); Mean Platelet Volume 9.7 FL (9.5-12.2); Monocytes % (A) 11.1 %; NRBC Per 100 WBC 0 X 10*3/uL (0.00-0.01); Neutrophils # (A) 7.48 X 10*3/uL (1.80-7.70); Neutrophils % (A) 68.8 %; Platelet Count 298 X 10*3/uL (140-440); RDW 14.4 % (11.5-14.5); WBC 10.85 X 10*3/uL (4.50-10.00)
[2023-11-08] MEDS: ASPIRIN 325 MG TAB PO SCH (08:45)
[2023-11-08] MEDS: HYDROcodone/APAP 7.5-325MG 1 EACH TAB PO PRN (08:45)
[2023-11-08] MEDS: METOPROLOL SUCCINATE (ER) 100 MG TAB.ER.24H PO SCH (08:46)
--- NOTE | 2023-11-08 08:54 | P.DS ---
Providers Expected date of discharge: 11/08/23 Attending physician: Blaise Chacon Consults: 11/07/23 16:02 Consult Physician Routine Consulting Provider: Nancy Lynn Consult Reason/Comments: medical management Do you want consulting provider notified?: Yes Primary care physician: Matthias Zelaya - Discharge Diagnosis(es) (1) Osteoarthritis of left knee Current Visit: Yes Status: Acute (2) S/P total knee arthroplasty Current Visit: Yes Status: Acute Hospital Course: This is a 73-year-old male with known history of degenerative arthritis of the left knee. The patient presented for evaluation as an outpatient. After discussion and consideration patient elects to proceed with total knee arthroplasty. The patient is seen preoperatively by Dr. Chacon and medically cleared for surgery by their primary care physician. Patient is admitted to [facility] on 11/07/2023 for total knee arthroplasty. The procedure is performed without complication or sequelae. The patient is doing well postoperatively. Labs and vital signs are stable on day of discharge. On day of discharge patient's knee incision is healing well. There is minimal erythema. There is no drainage noted at this time. There is minimal soft tissue swelling to the knee. Patient has full foot and ankle motion without difficulty or pain. Calf is soft and nontender to palpation. Neurovascular status to the left lower extremity is intact. Patient is discharged home in good condition. Please see med rec for accurate list of home medications. Plan - Discharge Summary Discharge Rx Participant: No New Discharge Prescriptions: New HYDROcodone/APAP 7.5-325MG [[place] 7.5-325] 1 - 2 tab PO Q6H PRN #32 tab PRN Reason: Pain Sennosides [Senokot] 2 tab PO DAILY PRN #60 tablet PRN Reason: Constipation Aspirin 325 mg PO BID #60 tab No Action Aspirin 81 mg PO DAILY metFORMIN HCL [Metformin HCl] 1,000 mg PO BID lisinopriL [Lisinopril] 40 mg PO HS Repaglinide [Prandin] 2 mg PO AC-TID Montelukast [Singulair] 10 mg PO DAILY Metoprolol Succinate (ER) [Toprol Xl] 100 mg PO DAILY Fexofenadine HCl [Mallory Allergy] 180 mg PO DAILY hydroCHLOROthiazide [Hydrochlorothiazide] 25 mg PO DAILY Semaglutide [Ozempic] 1 mg SQ WE Insulin Glargine,Hum.rec.anlog [Lantus Solostar Pen] 70 units SQ HS Cholecalciferol [Vitamin D3 (25 Mcg = 1000 Iu)] 4,000 unit PO DAILY Celecoxib [CeleBREX] 200 mg PO BID PRN PRN Reason: Pain Atorvastatin [Lipitor] 40 mg PO Q48H Unk Multi Vitamin 1 tab PO DAILY Discharge Medication List Aspirin 81 mg PO DAILY 11/02/23 [History] Atorvastatin [Lipitor] 40 mg PO Q48H 11/02/23 [History] Celecoxib [CeleBREX] 200 mg PO BID PRN 11/02/23 [History] Cholecalciferol [Vitamin D3 (25 Mcg = 1000 Iu)] 4,000 unit PO DAILY 11/02/23 [History] Fexofenadine HCl [Mallory Allergy] 180 mg PO DAILY 11/02/23 [History] Insulin Glargine,Hum.rec.anlog [Lantus Solostar Pen] 70 units SQ HS 11/02/23 [History] Metoprolol Succinate (ER) [Toprol Xl] 100 mg PO DAILY 11/02/23 [History] Montelukast [Singulair] 10 mg PO DAILY 11/02/23 [History] Repaglinide [Prandin] 2 mg PO AC-TID 11/02/23 [History] Semaglutide [Ozempic] 1 mg SQ WE 11/02/23 [History] Unk Multi Vitamin 1 tab PO DAILY 11/02/23 [History] hydroCHLOROthiazide [Hydrochlorothiazide] 25 mg PO DAILY 11/02/23 [History] lisinopriL [Lisinopril] 40 mg PO HS 11/02/23 [History] metFORMIN HCL [Metformin HCl] 1,000 mg PO BID 11/02/23 [History] Aspirin 325 mg PO BID #60 tab 11/07/23 [Rx] HYDROcodone/APAP 7.5-325MG [[place] 7.5-325] 1 - 2 tab PO Q6H PRN #32 tab 11/07/23 [Rx] Sennosides [Senokot] 2 tab PO DAILY PRN #60 tablet 11/07/23 [Rx] Follow up Appointment(s)/Referral(s): Blaise Chacon DO [Doctor of Osteopathic Medicine] - 2 Weeks Activity/Diet/Wound Care/Special Instructions: Weightbearing as tolerated with a walker. CPM 5-6h daily as tolerated. Leave dressing intact. Dressing may be removed by home care nurse or by patient in 7 days. Then change dressing twice daily until follow up. May shower with initial dressing intact and after removal. If dressing become saturated, please remove. Recommend use of compression stockings daily until follow up to help prevent swelling and blood clots. May remove at night before sleeping. Please take aspirin 325mg twice daily for 30 days to prevent blood clots. Please follow up with [facility] and call with any questions or concerns, . Discharge Disposition: HOME SELF-CARE
[2023-11-08] MEDS ORDERED: MONTELUKAST 10 MG TAB PO SCH (09:00)
[2023-11-08 11:03] LABS: Glucose,Whole Blood 188 mg/dL (70-110)
--- NOTE | 2023-11-12 05:43 | P.PN ---
Subjective Progress Note Date: 11/08/23 - Reason for Consult Low-grade fever - History of Present Illness 73-year-old pleasant gentleman admitted for elective left knee arthroplasty underwent surgery. Postoperatively patient is bit tachycardic usually takes metoprolol sustained release at home. Patient does have history of hypertension patient has an episode of low-grade fever 100.0 F. Patient clinically denied any cough with sputum, denied any case symptoms. Patient does have sleep apnea is obese, he uses CPAP machine at home at nighttime. Pain is well-controlled denied any complaints at this time 11/08/2093 Patient is seen in follow-up status post left total knee arthroplasty and doing relatively well. Patient has been now afebrile with no reports of chest pain or shortness of breath. Patient reports is planning on discharging home. Patient has been instructed to follow-up with primary care provider on discharge. Encouraged incentive spirometer use at least 10 times every hour while awake. Review of systems: Constitutional: No reports of fatigue, fever, or chills Cardiovascular: No reports of chest pain or palpitations Respiratory: No reports of shortness of breath or cough GI: No reports of nausea, vomiting, or diarrhea : No reports of dysuria or retention Neurovascular: No reports of weakness or numbness, reports some mild left knee pain All medications have been reviewed PHYSICAL EXAMINATION: GENERAL: The patient is alert and oriented x3, not in any acute distress. Well developed, well nourished. morbidly obese HEENT: Pupils are round and equally reacting to light. EOMI. No scleral icterus. No conjunctival pallor. Normocephalic, atraumatic. No pharyngeal erythema. No thyromegaly. CARDIOVASCULAR: S1 and S2 present. No murmurs, rubs, or gallops. PULMONARY: Chest is clear to auscultation, no wheezing or crackles. ABDOMEN: Soft, nontender, nondistended, normoactive bowel sounds. No palpable organomegaly. MUSCULOSKELETAL: No joint swelling or deformity. EXTREMITIES: No cyanosis, clubbing, or pedal edema. Left knee postsurgically packed NEUROLOGICAL: Gross neurological examination did not reveal any focal deficits. SKIN: No rashes. Assessment and plan: -Low-grade fever probably postoperative atelectasis, improved with no further fevers, instructed to continue with incentive spirometer use at least 10 times every hour while awake including bringing it home -Sinus tachycardia reflux tachycardia patient will be resumed on met oprolol.improved -Type 2 diabetes mellitus patient will be resumed on insulin hold off on oral agents, will order sliding scale -hyperlipidemia -Hypertension hold off hydrochlorothiazide rest of the medications will be continued -Morbid obesity and obstructive sleep apnea continue with CPAP machine -DVT prophylaxis: Patient is in aspirin twice a day Patient is medically stable for discharge planning per orthopedics and has instructed the patient in follow-up with primary care provider discharge. Encouraged incentive spirometer use while at home as well at least 10 times every hour while awake. We will continue to follow with orthopedics during hospitalization. Thank you kindly for this consultation. The impression and plan of care has been dictated by Jessica Alvarado, Nurse Practitioner as directed. Dr. Yumi MD I have performed a history and examination and MDM of this patient, discussed the same with the dictator, and agree with the dictator's assessment and plan as written ,documented as a scribe. Based on total visit time, I have performed more than 50% of the visit. Objective - Vital Signs Vital signs: Vital Signs Temp 98.4 F 11/08/23 08:00 Pulse 81 11/08/23 08:00 Resp 17 11/08/23 08:00 BP 134/81 11/08/23 08:00 Pulse Ox 96 11/08/23 08:00 FiO2 Intake & Output 11/07/23 11/08/23 11/08/23 18:59 06:59 18:59 Intake Total 1551 Output Total 50 Balance 1501 Weight 163.3 kg Intake: IV 1551 Output: Estimated Blood Loss 50 Other: Voiding Method Toilet Urinal # Voids 2 2 1 - Labs CBC & Chem 7: 11/08/23 03:56 Labs: Abnormal Lab Results - Last 24 Hours (Table) 11/07/23 11/07/23 11/07/23 Range/Units 15:08 16:29 20:54 WBC (4.50-10.00) X 10*3/uL RBC (4.40-5.60) X 10*6/uL Hgb (13.0-17.0) g/dL Hct (39.6-50.0) % Monocytes # (0.20-1.00) X 10*3/uL POC Glucose (mg/dL) 220 H 216 H 233 H (70-110) mg/dL 11/08/23 11/08/23 Range/Units 03:56 06:06 WBC 10.85 H (4.50-10.00) X 10*3/uL RBC 4.20 L (4.40-5.60) X 10*6/uL Hgb 12.8 L (13.0-17.0) g/dL Hct 39.2 L (39.6-50.0) % Monocytes # 1.20 H (0.20-1.00) X 10*3/uL POC Glucose (mg/dL) 133 H (70-110) mg/dL
== END 2023-11-08 13:00 | disposition home or self-care (01) ==
LOC: OR 07:19 → 4SSUR 14:53 → OR 11-08 13:00
PROVIDERS: ATTEND Orthopaedic Surgery
DX: M17.12 Unilateral primary osteoarthritis, left knee (principal); E11.9 Type 2 diabetes mellitus without complications; E66.01 Morbid (severe) obesity due to excess calories; E78.5 Hyperlipidemia, unspecified; G47.33 Obstructive sleep apnea (adult) (pediatric); I10 Essential (primary) hypertension; Z79.4 Long term (current) use of insulin; Z79.82 Long term (current) use of aspirin; Z79.84 Long term (current) use of oral hypoglycemic drugs; Z88.0 Allergy status to penicillin; Z79.899 Other long term (current) drug therapy; Z68.43 Body mass index [BMI] 50.0-59.9, adult
CPT/HCPCS: 27447; 97161; 64999; 64448; 85025; 87040; 73560; C1713; C1776; C1751; J2250; J0330; J1100; J2710; J0690 ×2; J2405; J2001; J3010; J1170 ×2; J2795; J2704